=== PATIENT | female | born 1975 | race Caucasian/White ===

== ENCOUNTER → 2024-03-21 15:36 | Outpatient (REF) | payer BC, SELFPAY | LOC: WDC 15:36 | PROVIDERS: ATTENDING PHYSICIAN Family Medicine | DX: Z12.31 Encounter for screening mammogram for malignant neoplasm of breast (principal) | CPT/HCPCS: 77063; 77067 ==

== ENCOUNTER → 2024-04-25 16:06 | Outpatient (REF) | payer BC, SELFPAY | LOC: RAD 16:06 | PROVIDERS: ATTENDING PHYSICIAN Nurse Practitioner Adult Health; FAMILY PHYSICIAN Family Medicine | DX: N93.9 Abnormal uterine and vaginal bleeding, unspecified (principal) | CPT/HCPCS: 76830; 76856 ==

== ENCOUNTER 2025-02-14 06:18 | Day surgery (SDC) | payer BC, SELFPAY | END 2025-02-14 10:57 | disposition home or self-care (01) | LOC: GI 06:18 | PROVIDERS: ATTENDING PHYSICIAN Surgery; FAMILY PHYSICIAN Family Medicine | DX: Z12.11 Encounter for screening for malignant neoplasm of colon (principal); Z86.0100 Personal history of colon polyps, unspecified; K64.9 Unspecified hemorrhoids | CPT/HCPCS: G0105 ==

== ENCOUNTER → 2025-06-11 15:40 | Outpatient (REF) | payer BC, SELFPAY | LOC: WDC 15:40 | PROVIDERS: ATTENDING PHYSICIAN Nurse Practitioner Adult Health; FAMILY PHYSICIAN Family Medicine | DX: Z12.31 Encounter for screening mammogram for malignant neoplasm of breast (principal) | CPT/HCPCS: 77063; 77067 ==